=== PATIENT | male | born 1950 | race Native Hawaiian/Other Pacific Islander ===

== ENCOUNTER 2016-12-17 14:50 | Outpatient (CLI) | payer OTHER ==
[~2016-12-17 14:50] MED LIST: ALEVE220 M1; AMLO10TA PO; ASA LOW STR81 MG PO; CELEXA20 MG PO; DICL1GEL2 TOP; FURO20TA67 PO; TRAM50TA PO
== END 2016-12-17 16:00 | disposition home or self-care (01) ==
LOC: US 14:50
DX: M79.604 Pain in right leg (principal); M79.89 Other specified soft tissue disorders

== ENCOUNTER 2017-09-01 14:30 | Emergency (ER) | payer OTHER ==
[~2017-09-01] VITALS: Ht 170.2 cm; Wt 136.1 kg
[2017-09-01 14:34] VITALS: TEMP 97.2
[2017-09-01 16:32] VITALS: BP 178/88
== END 2017-09-01 16:32 | disposition home or self-care (01) ==
LOC: ED 14:30
DX: S81.812A Laceration without foreign body, left lower leg, initial encounter (principal); W18.39XA Other fall on same level, initial encounter; Y92.098 Other place in other non-institutional residence as the place of occurrence of the external cause
CPT/HCPCS: 90471; 90715; 96372; 99283; J0696

== ENCOUNTER 2018-12-15 10:25 | Outpatient (CLI) | payer OTHER | END 2018-12-15 23:10 | disposition home or self-care (01) | LOC: RAD 10:25 | DX: M25.561 Pain in right knee (principal); M25.562 Pain in left knee ==

== ENCOUNTER 2019-12-23 09:21 | Outpatient (CLI) | payer OTHER | END 2019-12-23 23:05 | disposition home or self-care (01) | LOC: RAD 09:21 | PROVIDERS: ATTEND Physician Assistant | DX: M25.512 Pain in left shoulder (principal) ==

== ENCOUNTER 2020-10-29 09:30 | Outpatient (CLI) | payer OTHER | END 2020-10-29 20:57 | disposition home or self-care (01) | LOC: RAD 09:30 | PROVIDERS: ATTEND Physician Assistant | DX: M25.561 Pain in right knee (principal) ==

== ENCOUNTER 2020-11-02 13:49 | Outpatient (CLI) | payer OTHER | END 2020-11-02 23:03 | disposition home or self-care (01) | LOC: MRI 13:49 | PROVIDERS: ATTEND Physician Assistant | DX: S72.434D Nondisplaced fracture of medial condyle of right femur, subsequent encounter for closed fracture with routine healing (principal) ==

== ENCOUNTER 2022-01-29 12:57 | Outpatient (CLI) | payer OTHER | END 2022-01-29 19:38 | disposition home or self-care (01) | LOC: MRI 12:57 | PROVIDERS: ATTEND Internal Medicine | DX: M50.30 Other cervical disc degeneration, unspecified cervical region (principal) ==

== ENCOUNTER 2022-03-20 10:06 | Outpatient (CLI) | payer OTHER | END 2022-03-20 22:07 | disposition home or self-care (01) | LOC: RAD 10:06 | PROVIDERS: ATTEND Internal Medicine | DX: Z01.818 Encounter for other preprocedural examination (principal) ==

== ENCOUNTER 2022-05-13 16:14 | Outpatient (CLI) | payer OTHER | END 2022-05-13 19:41 | disposition home or self-care (01) | LOC: RAD 16:14 | PROVIDERS: ATTEND Orthopaedic Surgery | DX: M25.561 Pain in right knee (principal) ==

== ENCOUNTER 2022-06-07 06:43 | Outpatient (CLI) | payer OTHER | END 2022-06-07 23:59 | disposition home or self-care (01) | LOC: RAD 06:43 | PROVIDERS: ATTEND Orthopaedic Surgery | DX: M25.562 Pain in left knee (principal) ==

== ENCOUNTER 2022-07-12 17:20 | Emergency (ER) | payer OTHER ==
[~2022-07-12] VITALS: Ht 175.3 cm; Wt 124.7 kg
[2022-07-12 18:58] LABS: PLATELET COUNT 247 K/uL (142-355)
[2022-07-12 19:15] LABS: POTASSIUM 3.8 mmol/L (3.6-5.2)
[2022-07-12 20:15] VITALS: BP 146/80; TEMP 97.2
== END 2022-07-12 20:15 | disposition home or self-care (01) ==
LOC: ED 17:20
PROVIDERS: Family Medicine
DX: R60.0 Localized edema (principal); Z96.652 Presence of left artificial knee joint
CPT/HCPCS: 80053; 85027; 87070; 87205; 99283

== ENCOUNTER 2022-07-18 08:59 | Outpatient (CLI) | payer OTHER | END 2022-07-18 19:23 | disposition home or self-care (01) | LOC: RAD 08:59 | PROVIDERS: ATTEND Physician Assistant | DX: M25.562 Pain in left knee (principal) ==

== ENCOUNTER 2022-07-30 10:38 | Outpatient (CLI) | payer OTHER | END 2022-07-30 19:22 | disposition home or self-care (01) | LOC: LABW 10:38 | PROVIDERS: ATTEND Internal Medicine | DX: R19.7 Diarrhea, unspecified (principal) | CPT/HCPCS: 82272; 83630; 87015; 87045; 87077; 87324; 87328; 87329; 87449; 87899 ==

== ENCOUNTER 2022-12-19 10:11 | Outpatient (CLI) | payer OTHER | END 2022-12-19 18:58 | disposition home or self-care (01) | LOC: RAD 10:11 | PROVIDERS: ATTEND Physician Assistant | DX: M25.562 Pain in left knee (principal); M25.561 Pain in right knee ==